=== PATIENT | male | born 1950 | race Caucasian/White ===

== ENCOUNTER 2016-12-15 17:09 | Emergency (ER) | payer MEDICARE, OTHER ==
[~2016-12-15] VITALS: Ht 180.3 cm; Wt 81.7 kg
[~2016-12-15 17:09] MED LIST: FENOFIBRATE160 MG PO; IBUPROFEN400 MG PO; LEVITRA20 MG PO; LISINOPRIL-HCT1 EAC2 PO; METFORMIN HCL500 MG PO
[2016-12-15] MEDS ORDERED: PENICILLIN V P500 MG PO (18:27)
== END 2016-12-15 18:47 | disposition home or self-care (01) ==
LOC: ED 17:09
DX: K05.10 Chronic gingivitis, plaque induced (principal); Z79.899 Other long term (current) drug therapy
CPT/HCPCS: 99283